=== PATIENT | male | born 1980 | race Caucasian/White ===

== ENCOUNTER 2024-02-01 16:34 | Emergency (ER) | payer SELFPAY ==
[~2024-02-01] VITALS: Ht 188 cm; Wt 91.0 kg
[2024-02-01 16:38] VITALS: TEMP 98.7; O2SAT 99
[2024-02-01] MEDS ORDERED: DOXY100C5 MT (17:39)
[2024-02-01] MEDS: TETANUS, DIPHTHERIA, PERTUSSIS VAC/PF 0.5ML (>10YR OLD) IM ONE (18:15)
[2024-02-01 18:35] VITALS: BP 138/68; PULSE 90; RESP 15
== END 2024-02-01 18:42 | disposition home or self-care (01) ==
LOC: ER 16:34
DX: L03.115 Cellulitis of right lower limb (principal)
CPT/HCPCS: 73630; 90471; 90715; 99283